=== PATIENT | male | born 1935 | race African-American/Black ===

== ENCOUNTER 2017-03-18 12:18 | Inpatient (IN) | payer MEDICARE, MEDICAID ==
[2017-03-18] VITALS (12 sets, daily range): BP systolic 98–137; BP diastolic 46–86
[~2017-03-18] VITALS: Ht 172.7 cm; Wt 92.7 kg
[2017-03-18] MEDS ORDERED: ALBUTEROL (0.5%) 2.5MG/0.5ML NEB HHN ONE (12:37)
[2017-03-18] MEDS ORDERED: IPRATROPIUM BROMIDE (0.02%) 0.5MG/2.5ML NEB ONE (12:37)
[2017-03-18 12:41] LABS: BG BASE EXCESS -0.4 mmol/L (-2.0-2.0); BG BILEVEL POS AIRWAY PRESSURE 20/5; BG CARBOXYHEMOGLOBIN 0.3 % (0.5-1.5); BG DEOXYHEMOGLOBIN 0.6 % (0.0-5.0); BG FRACTION INSPIRED OXYGEN 100; BG HCO3 ACT 23.8 mmol/L (22.0-26.0); BG METHEMOGLOBIN 0.4 % (0.0-1.5); BG OXYGEN SATURATION 99.4 % (92.0-98.5); BG OXYHEMOGLOBIN 98.7 % (94.0-97.0); BG PCO2 36.7 mmHg (35.0-45.0); BG PH 7.429 (7.350-7.450); BG PO2 330.4 mmHg (75.0-100.0); BG SAMPLE SITE LEFT RADIAL; BG TOTAL HEMOGLOBIN 9.2 g/dL (12.0-18.0); BG VENT MODE MASK - BIPAP
[2017-03-18 13:13] LABS: INR 1.4; PROTHROMBIN TIME 14.5 sec
[2017-03-18 13:15] LABS: BASOPHILS % 0.2 % (0.0-2.0); EOSINOPHILS % 0.6 % (0.0-5.0); HEMATOCRIT. 28.2 % (42.0-52.0); LYMPHOCYTES % 28.9 % (20.0-50.0); MEAN CORPUSCULAR HEMOGLOBIN 29.8 pg (28.0-32.0); MEAN CORPUSCULAR VOLUME 93.9 fL (80.0-94.0); MEAN PLATELET VOLUME 10.1 fl (7.4-10.4); MONOCYTES % 7.6 % (2.0-8.0); NEUTROPHILS % 62.7 % (40.0-76.0); PLATELET 92 x1000/uL (130-400); RED BLOOD CELL COUNT 3.01 mill/uL (4.7-6.1); RED CELL DISTRIBUTION WIDTH 14.9 % (11.6-14.6)
[2017-03-18 13:22] LABS: CARBON DIOXIDE 30 mEq/L (21-32); CHLORIDE 107 mEq/L (98-107)
[2017-03-18] MEDS ORDERED: PIPERACILLIN/TAZOBACTAM 3.375GM/50ML PREMIX IV ONE (13:30)
[2017-03-18] MEDS ORDERED: VANCOMYCIN 1 G PREMIX 200 ML IV SCH (13:30)
[2017-03-18] MEDS ORDERED: ETOMIDATE 2MG/ML 10ML VIAL IV ONE ×2 (13:32→14:00)
[2017-03-18] MEDS ORDERED: SUCCINYLCHOLINE CHLORIDE 200MG/10ML VIAL IV ONE ×2 (13:32→14:00)
[2017-03-18] MEDS ORDERED: PROPOFOL 10MG/ML 100ML 100 ML IV ONE ×2 (13:44→14:00)
[2017-03-18] MEDS ORDERED: PIPERACILLIN/TAZ 3.375G PREMIX 50 ML IV NR (13:45)
[2017-03-18] MEDS ORDERED: SODIUM CHLORIDE 0.9% 1000ML BAG (SEPSIS BOLUS) IV ONE ×2 (14:00→17:15)
[2017-03-18] MEDS ORDERED: ACETAMINOPHEN 650MG SUPP PR ONE (14:15)
[2017-03-18] MEDS: PANTOPRAZOLE SODIUM 40 MG/VIAL IV SCH (14:46)
[2017-03-18 15:02] LABS: CLARITY URINE CLOUDY (CLEAR); COLOR URINE DARK YELLOW (YELLOW); GLUCOSE URINE NEGATIVE (NEGATIVE); KETONES URINE NEGATIVE (NEGATIVE); LEUKOCYTE ESTERASE URINE NEGATIVE (NEGATIVE); NITRITE URINE NEGATIVE (NEGATIVE); OCCULT BLOOD URINE 3+ (NEGATIVE); PROTEIN URINE TRACE (NEGATIVE); SPECIFIC GRAVITY URINE 1.022 (1.005-1.030); UROBILINOGEN URINE 0.2 E.U./dL (0.2-1.0)
[2017-03-18 15:34] LABS: BG BASE EXCESS -0.1 mmol/L (-2.0-2.0); BG CARBOXYHEMOGLOBIN 0.2 % (0.5-1.5); BG DEOXYHEMOGLOBIN 0.5 % (0.0-5.0); BG FRACTION INSPIRED OXYGEN 100; BG METHEMOGLOBIN 0.6 % (0.0-1.5); BG OXYGEN SATURATION 99.5 % (92.0-98.5); BG OXYHEMOGLOBIN 98.7 % (94.0-97.0); BG PCO2 31.8 mmHg (35.0-45.0); BG PH 7.478 (7.350-7.450); BG PO2 475.2 mmHg (75.0-100.0); BG SAMPLE SITE RIGHT RADIAL; BG TIDAL VOLUME(mL) 650 mL; BG TOTAL HEMOGLOBIN 9.4 g/dL (12.0-18.0); BG VENT MODE VENT - A/C; BG VENT RATE 14 set
[2017-03-18] MEDS ORDERED: PROPOFOL 10MG/ML 100ML 100 ML IV PRN (16:45)
[2017-03-18] MEDS ORDERED: ONDANSETRON HCL 4MG/2ML VIAL IV PRN (17:15)
[2017-03-18] MEDS ORDERED: ACETAMINOPHEN 325MG TABLET PO PRN (17:15)
[2017-03-18] MEDS ORDERED: DOCUSATE SODIUM 100MG CAPSULE PO PRN (17:15)
[2017-03-18] MEDS ORDERED: MAGNESIUM/ALUMINUM HYDROXIDE/SIMETHICONE 30ML UDC PO PRN (17:15)
[2017-03-18] MEDS ORDERED: IPRATROPIUM/ALBUTEROL 0.5-3(2.5)MG/3ML NEB HHN SCH (17:15)
[2017-03-18] MEDS ORDERED: DIPHENHYDRAMINE 50MG/ML VIAL IV PRN (17:15)
[2017-03-18] MEDS ORDERED: NA PHOS,M-B/NA PHOS,DI-BA ENEMA 118ML PR PRN (17:15)
[2017-03-18] MEDS ORDERED: LEVOFLOXACIN 750MG PREMIX 150 ML IV NR (18:00)
[2017-03-18] MEDS ORDERED: SODIUM CHLORIDE 0.9% 1,500 ML IV SCH (18:00)
[2017-03-18] MEDS ORDERED: ENOXAPARIN 30MG/0.3ML SYR SUBCUT SCH (18:00)
[2017-03-18] MEDS ORDERED: SODIUM CHLORIDE 0.9% 1,000 ML IV SCH (18:00)
[2017-03-18] MEDS: DEXT 5%/0.45% NACL 1000ML 1,000 ML IV SCH (18:02)
[2017-03-18] MEDS ORDERED: NOREPINEPHRINE 4 MG in DEXT 5% WATER 246 ML IV PRN (19:00)
[2017-03-18 19:01] LABS: FOLIC ACID (FOLATE) SERUM 17.4 ng/mL (>5.38)
[2017-03-18] MEDS: ASCORBIC ACID 500 MG TABLET PO SCH (20:25)
[2017-03-18] MEDS: CEFTRIAXONE 1 G PREMIX 50 ML IV SCH (20:25)
[2017-03-18] MEDS: IPRATROPIUM/ALBUTEROL 0.5-3(2.5)MG/3ML NEB HHN SCH (21:16)
[2017-03-18] MEDS: METRONIDAZOLE 500 MG PREMIX 100 ML IV SCH (21:35)
[2017-03-18] MEDS: ALBUMIN HUMAN 25GM/100ML (25%) IV SCH (21:35)
[2017-03-19] VITALS (32 sets, daily range): BP systolic 118–153; BP diastolic 52–76
[2017-03-19] MEDS: IPRATROPIUM/ALBUTEROL 0.5-3(2.5)MG/3ML NEB HHN SCH ×7 (00:52→23:40)
[2017-03-19] MEDS: METRONIDAZOLE 500 MG PREMIX 100 ML IV SCH ×3 (05:21→22:06)
[2017-03-19] MEDS: ALBUMIN HUMAN 25GM/100ML (25%) IV SCH ×2 (05:21→14:26)
[2017-03-19 07:24] LABS: BG BASE EXCESS 2.4 mmol/L (-2.0-2.0); BG CARBOXYHEMOGLOBIN 0.3 % (0.5-1.5); BG DEOXYHEMOGLOBIN 1.1 % (0.0-5.0); BG HCO3 ACT 26.3 mmol/L (22.0-26.0); BG METHEMOGLOBIN 0.5 % (0.0-1.5); BG OXYGEN SATURATION 98.9 % (92.0-98.5); BG OXYHEMOGLOBIN 98.1 % (94.0-97.0); BG PCO2 37.5 mmHg (35.0-45.0); BG PH 7.464 (7.350-7.450); BG PO2 177.7 mmHg (75.0-100.0); BG SAMPLE SITE RIGHT RADIAL; BG TIDAL VOLUME(mL) 550 mL; BG TOTAL HEMOGLOBIN 6.8 g/dL (12.0-18.0); BG VENT MODE VENT - A/C; BG VENT RATE 14 set
[2017-03-19] MEDS ORDERED: PANTOPRAZOLE SODIUM 40 MG/VIAL IV SCH (09:00)
[2017-03-19] MEDS: PANTOPRAZOLE SODIUM 40 MG/VIAL IV SCH (09:28)
[2017-03-19] MEDS: DEXT 5%/0.45% NACL 1000ML 1,000 ML IV SCH ×2 (09:44→14:00)
[2017-03-19 10:01] LABS: BASOPHILS % 0.1 % (0.0-2.0); EOSINOPHILS % 4.7 % (0.0-5.0); LYMPHOCYTES % 10.7 % (20.0-50.0); MEAN CORPUSCULAR HEMOGLOBIN 29.7 pg (28.0-32.0); MEAN CORPUSCULAR VOLUME 92.6 fL (80.0-94.0); MEAN PLATELET VOLUME 10.2 fl (7.4-10.4); MONOCYTES % 3.3 % (2.0-8.0); NEUTROPHILS % 81.2 % (40.0-76.0); PLATELET 79 x1000/uL (130-400); RED BLOOD CELL COUNT 2.14 mill/uL (4.7-6.1); RED CELL DISTRIBUTION WIDTH 14.8 % (11.6-14.6)
[2017-03-19] MEDS: ASCORBIC ACID 500 MG TABLET PO SCH ×2 (10:01→10:06)
[2017-03-19 10:16] LABS: HEMATOCRIT. 19.8 % (42.0-52.0); HEMOGLOBIN. 6.3 g/dL (14.0-18.0)
[2017-03-19 10:22] LABS: CARBON DIOXIDE 27 mEq/L (21-32); CHLORIDE 111 mEq/L (98-107)
[2017-03-19] MEDS ORDERED: ACETAMINOPHEN 650MG SUPP PR PRN (12:15)
[2017-03-19] MEDS ORDERED: POTASSIUM CHLORIDE INJ 40 MEQ in DEXT 5% WATER 250 ML IV SCH (14:00)
[2017-03-19] MEDS: CEFTRIAXONE 1 G PREMIX 50 ML IV SCH (20:20)
[2017-03-20] VITALS (29 sets, daily range): BP systolic 136–160; BP diastolic 62–79
[2017-03-20] MEDS: DEXT 5%/0.45% NACL 1000ML 1,000 ML IV SCH ×3 (01:23→20:43)
[2017-03-20] MEDS: IPRATROPIUM/ALBUTEROL 0.5-3(2.5)MG/3ML NEB HHN SCH ×6 (03:04→23:44)
[2017-03-20 05:28] LABS: HEMATOCRIT. 28.3 % (42.0-52.0); HEMOGLOBIN. 9.3 g/dL (14.0-18.0); MEAN CORPUSCULAR HEMOGLOBIN 30.5 pg (28.0-32.0); MEAN CORPUSCULAR VOLUME 92.4 fL (80.0-94.0); MEAN PLATELET VOLUME 11.1 fl (7.4-10.4); PLATELET 98 x1000/uL (130-400); RED BLOOD CELL COUNT 3.06 mill/uL (4.7-6.1)
[2017-03-20 06:11] LABS: CARBON DIOXIDE 27 mEq/L (21-32); CHLORIDE 112 mEq/L (98-107)
[2017-03-20] MEDS: METRONIDAZOLE 500 MG PREMIX 100 ML IV SCH ×3 (06:21→22:01)
[2017-03-20] MEDS: PROPOFOL 10MG/ML 100ML 100 ML IV PRN ×2 (08:21→22:05)
[2017-03-20] MEDS: PANTOPRAZOLE SODIUM 40 MG/VIAL IV SCH (08:22)
[2017-03-20 08:56] LABS: BG CARBOXYHEMOGLOBIN 0.2 % (0.5-1.5); BG DEOXYHEMOGLOBIN 3.6 % (0.0-5.0); BG FRACTION INSPIRED OXYGEN 30; BG HCO3 ACT 23.2 mmol/L (22.0-26.0); BG METHEMOGLOBIN 1.1 % (0.0-1.5); BG OXYGEN SATURATION 96.4 % (92.0-98.5); BG OXYHEMOGLOBIN 95.1 % (94.0-97.0); BG PCO2 32.5 mmHg (35.0-45.0); BG PH 7.471 (7.350-7.450); BG PO2 95.9 mmHg (75.0-100.0); BG SAMPLE SITE RIGHT RADIAL; BG TIDAL VOLUME(mL) 550 mL; BG TOTAL HEMOGLOBIN 10.4 g/dL (12.0-18.0); BG VENT MODE VENT - A/C; BG VENT RATE 14 set
[2017-03-20] MEDS: ASCORBIC ACID 500 MG TABLET PO SCH ×2 (10:01→20:43)
[2017-03-20 11:00] LABS: PLATELET ESTIMATE DECREASED
[2017-03-20] MEDS: CEFEPIME 1,000 MG in DEXTROSE 5% WATER 50 ML IV SCH ×2 (13:21→20:43)
[2017-03-20] MEDS: FLUCONAZOLE 200 MG/100ML BAG 100 ML IV SCH (14:28)
[2017-03-20] MEDS ORDERED: LEVOFLOXACIN 750MG PREMIX 150 ML IV SCH (18:00)
[2017-03-21] VITALS (33 sets, daily range): BP systolic 121–174; BP diastolic 55–95
[2017-03-21] MEDS: IPRATROPIUM/ALBUTEROL 0.5-3(2.5)MG/3ML NEB HHN SCH ×5 (04:30→20:08)
[2017-03-21] MEDS: METRONIDAZOLE 500 MG PREMIX 100 ML IV SCH ×3 (06:21→22:49)
[2017-03-21] MEDS: PROPOFOL 10MG/ML 100ML 100 ML IV PRN (06:24)
[2017-03-21] MEDS: PANTOPRAZOLE SODIUM 40 MG/VIAL IV SCH (08:52)
[2017-03-21] MEDS: ASCORBIC ACID 500 MG TABLET PO SCH ×2 (08:52→20:17)
[2017-03-21] MEDS: CEFEPIME 1,000 MG in DEXTROSE 5% WATER 50 ML IV SCH ×2 (08:52→20:18)
[2017-03-21] MEDS: DEXT 5%/0.45% NACL 1000ML 1,000 ML IV SCH ×2 (09:13→20:18)
[2017-03-21] MEDS: FLUCONAZOLE 200 MG/100ML BAG 100 ML IV SCH (10:01)
[2017-03-21 12:30] LABS: BG CARBOXYHEMOGLOBIN 0.3 % (0.5-1.5); BG DEOXYHEMOGLOBIN 3.1 % (0.0-5.0); BG FRACTION INSPIRED OXYGEN 30; BG HCO3 ACT 22.9 mmol/L (22.0-26.0); BG METHEMOGLOBIN 0.4 % (0.0-1.5); BG OXYGEN SATURATION 96.9 % (92.0-98.5); BG OXYHEMOGLOBIN 96.2 % (94.0-97.0); BG PCO2 31.5 mmHg (35.0-45.0); BG PO2 91.6 mmHg (75.0-100.0); BG PRESSURE SUPPORT 10; BG SAMPLE SITE RIGHT RADIAL; BG TIDAL VOLUME(mL) 550 mL; BG VENT MODE VENT - SIMV; BG VENT RATE 14 set
[2017-03-21] MEDS: MIDAZOLAM HCL 50 MG in DEXTROSE 5% WATER 40 ML IV PRN ×2 (14:04→18:47)
[2017-03-21] MEDS: FENTANYL CITRATE/PF 500 MCG in SODIUM CHLORIDE 0.9% 40 ML IV PRN ×2 (14:19→18:48)
[2017-03-21] MEDS ORDERED: QUETIAPINE FUMARATE 25MG TABLET PO SCH (21:00)
[2017-03-22] VITALS (55 sets, daily range): BP systolic 100–172; BP diastolic 47–80
[2017-03-22] MEDS: IPRATROPIUM/ALBUTEROL 0.5-3(2.5)MG/3ML NEB HHN SCH ×6 (00:19→20:30)
[2017-03-22] MEDS ORDERED: ALBU18HF2 IH (01:58)
[2017-03-22] MEDS ORDERED: DILT180C3 PO (01:58)
[2017-03-22] MEDS ORDERED: HYDR25TA PO (01:58)
[2017-03-22] MEDS ORDERED: AMIO200T39 PO (01:58)
[2017-03-22] MEDS ORDERED: LISI30TA36 PO (01:58)
[2017-03-22] MEDS ORDERED: ACET250T3 PO (01:58)
[2017-03-22] MEDS ORDERED: ALBU2.5V13 IH (01:58)
[2017-03-22] MEDS ORDERED: BECL8.7H BOTHNSTRLS (01:58)
[2017-03-22] MEDS ORDERED: AMLO1CAP5 PO (01:58)
[2017-03-22] MEDS ORDERED: DIGO125T82 PO (01:58)
[2017-03-22] MEDS: DEXT 5%/0.45% NACL 1000ML 1,000 ML IV SCH ×2 (04:20→18:29)
[2017-03-22] MEDS: METRONIDAZOLE 500 MG PREMIX 100 ML IV SCH ×3 (06:11→22:17)
[2017-03-22] MEDS: MIDAZOLAM HCL 50 MG in DEXTROSE 5% WATER 40 ML IV PRN (06:12)
[2017-03-22] MEDS: FENTANYL CITRATE/PF 500 MCG in SODIUM CHLORIDE 0.9% 40 ML IV PRN (06:49)
[2017-03-22 07:44] LABS: BG BASE EXCESS -1.4 mmol/L (-2.0-2.0); BG HCO3 ACT 22.1 mmol/L (22.0-26.0); BG PCO2 32.5 mmHg (35.0-45.0); BG PH 7.451 (7.350-7.450); BG PO2 71.3 mmHg (75.0-100.0); BG SAMPLE SITE RIGHT RADIAL; BG TIDAL VOLUME(mL) 550 mL; BG TOTAL HEMOGLOBIN 9.4 g/dL (12.0-18.0); BG VENT MODE VENT - A/C; BG VENT RATE 14 set
[2017-03-22] MEDS: PANTOPRAZOLE SODIUM 40 MG/VIAL IV SCH (09:58)
[2017-03-22] MEDS: ASCORBIC ACID 500 MG TABLET PO SCH ×2 (09:59→20:21)
[2017-03-22] MEDS: CEFEPIME 1,000 MG in DEXTROSE 5% WATER 50 ML IV SCH (09:59)
[2017-03-22] MEDS: FLUCONAZOLE 200 MG/100ML BAG 100 ML IV SCH (10:54)
[2017-03-22 13:20] LABS: HEMATOCRIT. 28.5 % (42.0-52.0); HEMOGLOBIN. 9.5 g/dL (14.0-18.0); MEAN CORPUSCULAR HEMOGLOBIN 29.6 pg (28.0-32.0); MEAN CORPUSCULAR VOLUME 88.8 fL (80.0-94.0); MEAN PLATELET VOLUME 9.5 fl (7.4-10.4); PLATELET 167 x1000/uL (130-400); RED BLOOD CELL COUNT 3.21 mill/uL (4.7-6.1); RED CELL DISTRIBUTION WIDTH 15.6 % (11.6-14.6)
[2017-03-22 13:52] LABS: PLATELET ESTIMATE NORMAL
[2017-03-22] MEDS ORDERED: POTASSIUM CHLORIDE INJ 60 MEQ in DEXT 5% WATER 250 ML IV ONE (17:00)
[2017-03-22] MEDS: KCL 20MEQ/100ML PREMIX 100 ML IV SCH ×3 (18:20→22:16)
[2017-03-23] VITALS (56 sets, daily range): BP systolic 114–174; BP diastolic 54–98
[2017-03-23] MEDS: IPRATROPIUM/ALBUTEROL 0.5-3(2.5)MG/3ML NEB HHN SCH ×7 (00:25→23:58)
[2017-03-23] MEDS: CLONIDINE 0.1MG TABLET PO PRN (03:43)
[2017-03-23 05:02] LABS: HEMOGLOBIN. 9.4 g/dL (14.0-18.0); MEAN CORPUSCULAR HEMOGLOBIN 29.2 pg (28.0-32.0); RED BLOOD CELL COUNT 3.21 mill/uL (4.7-6.1)
[2017-03-23 05:27] LABS: CARBON DIOXIDE 26 mEq/L (21-32); CHLORIDE 111 mEq/L (98-107)
[2017-03-23 06:05] LABS: HEMATOCRIT. 28.7 % (42.0-52.0); MEAN CORPUSCULAR VOLUME 89.6 fL (80.0-94.0); MEAN PLATELET VOLUME 9.6 fl (7.4-10.4); PLATELET 183 x1000/uL (130-400); RED CELL DISTRIBUTION WIDTH 15.7 % (11.6-14.6)
[2017-03-23] MEDS: DEXT 5%/0.45% NACL 1000ML 1,000 ML IV SCH ×3 (06:30→20:58)
[2017-03-23] MEDS: METRONIDAZOLE 500 MG PREMIX 100 ML IV SCH ×3 (06:31→22:00)
[2017-03-23 07:45] LABS: BG BASE EXCESS -2.8 mmol/L (-2.0-2.0); BG CARBOXYHEMOGLOBIN 0.3 % (0.5-1.5); BG DEOXYHEMOGLOBIN 3.4 % (0.0-5.0); BG FRACTION INSPIRED OXYGEN 30; BG HCO3 ACT 20.7 mmol/L (22.0-26.0); BG METHEMOGLOBIN 0.5 % (0.0-1.5); BG OXYGEN SATURATION 96.6 % (92.0-98.5); BG OXYHEMOGLOBIN 95.8 % (94.0-97.0); BG PCO2 31.6 mmHg (35.0-45.0); BG PH 7.435 (7.350-7.450); BG PO2 89.6 mmHg (75.0-100.0); BG SAMPLE SITE RIGHT RADIAL; BG TIDAL VOLUME(mL) 550 mL; BG TOTAL HEMOGLOBIN 10.3 g/dL (12.0-18.0); BG VENT MODE VENT - A/C; BG VENT RATE 14 set
[2017-03-23] MEDS: CEFEPIME 1,000 MG in DEXTROSE 5% WATER 50 ML IV SCH ×2 (09:00→14:18)
[2017-03-23] MEDS: ASCORBIC ACID 500 MG TABLET PO SCH ×2 (09:00→20:57)
[2017-03-23] MEDS: PANTOPRAZOLE SODIUM 40 MG/VIAL IV SCH (09:00)
[2017-03-23] MEDS: FLUCONAZOLE 200 MG/100ML BAG 100 ML IV SCH (09:00)
[2017-03-23 10:27] LABS: PLATELET ESTIMATE NORMAL
[2017-03-23] MEDS: ASPIRIN 325MG TABLET PO SCH (14:17)
[2017-03-23 15:48] LABS: T4 FREE 1.38 ng/dL (0.76-1.46)
[2017-03-23 16:21] LABS: VITAMIN B12 SERUM > 2000 pg/mL (211-911)
[2017-03-23] MEDS: FENTANYL CITRATE/PF 500 MCG in SODIUM CHLORIDE 0.9% 40 ML IV PRN (22:00)
[2017-03-23] MEDS: MIDAZOLAM HCL 50 MG in DEXTROSE 5% WATER 40 ML IV PRN (22:39)
[2017-03-24] VITALS (74 sets, daily range): BP systolic 105–172; BP diastolic 48–102
[2017-03-24] MEDS: IPRATROPIUM/ALBUTEROL 0.5-3(2.5)MG/3ML NEB HHN SCH ×3 (03:59→11:42)
[2017-03-24] MEDS: CLONIDINE 0.1MG TABLET PO PRN (05:07)
[2017-03-24] MEDS: FENTANYL CITRATE/PF 500 MCG in SODIUM CHLORIDE 0.9% 40 ML IV PRN ×3 (05:57→22:22)
[2017-03-24] MEDS: MIDAZOLAM HCL 50 MG in DEXTROSE 5% WATER 40 ML IV PRN ×2 (05:58→13:39)
[2017-03-24] MEDS: METRONIDAZOLE 500 MG PREMIX 100 ML IV SCH (06:04)
[2017-03-24 07:27] LABS: BG BASE EXCESS -0.4 mmol/L (-2.0-2.0); BG CARBOXYHEMOGLOBIN 0.3 % (0.5-1.5); BG DEOXYHEMOGLOBIN 8.9 % (0.0-5.0); BG FRACTION INSPIRED OXYGEN 30; BG METHEMOGLOBIN 1.7 % (0.0-1.5); BG OXYGEN SATURATION 90.9 % (92.0-98.5); BG OXYHEMOGLOBIN 89.1 % (94.0-97.0); BG PCO2 44.6 mmHg (35.0-45.0); BG PH 7.367 (7.350-7.450); BG PO2 65.9 mmHg (75.0-100.0); BG SAMPLE SITE RIGHT RADIAL; BG TIDAL VOLUME(mL) 550 mL; BG VENT MODE VENT - A/C; BG VENT RATE 14 set
[2017-03-24] MEDS: DEXT 5%/0.45% NACL 1000ML 1,000 ML IV SCH ×2 (07:56→19:51)
[2017-03-24] MEDS: ASPIRIN 325MG TABLET PO SCH (08:39)
[2017-03-24] MEDS: PANTOPRAZOLE SODIUM 40 MG/VIAL IV SCH (08:39)
[2017-03-24] MEDS: FLUCONAZOLE 200 MG/100ML BAG 100 ML IV SCH (08:39)
[2017-03-24] MEDS: ASCORBIC ACID 500 MG TABLET PO SCH (08:39)
[2017-03-24 10:54] LABS: HEMATOCRIT. 25.5 % (42.0-52.0); HEMOGLOBIN. 8.4 g/dL (14.0-18.0); MEAN CORPUSCULAR HEMOGLOBIN 29.2 pg (28.0-32.0); MEAN CORPUSCULAR VOLUME 88.4 fL (80.0-94.0); MEAN PLATELET VOLUME 9.2 fl (7.4-10.4); PLATELET 214 x1000/uL (130-400); RED BLOOD CELL COUNT 2.89 mill/uL (4.7-6.1); RED CELL DISTRIBUTION WIDTH 15.9 % (11.6-14.6)
[2017-03-24 11:06] LABS: CARBON DIOXIDE 24 mEq/L (21-32); CHLORIDE 106 mEq/L (98-107)
[2017-03-24 11:31] LABS: PLATELET ESTIMATE NORMAL
[2017-03-24] MEDS ORDERED: LORAZEPAM 2MG/ML CPJ IV PRN (14:00)
[2017-03-24] MEDS: IPRATROPIUM/ALBUTEROL 0.5-3(2.5)MG/3ML NEB HHN PRN ×2 (16:07→20:32)
[2017-03-25] VITALS (80 sets, daily range): BP systolic 105–159; BP diastolic 48–73
[2017-03-25] MEDS: DEXT 5%/0.45% NACL 1000ML 1,000 ML IV SCH ×3 (06:00→20:00)
[2017-03-25] MEDS: FENTANYL CITRATE/PF 500 MCG in SODIUM CHLORIDE 0.9% 40 ML IV PRN ×3 (06:41→22:01)
[2017-03-25] MEDS: PANTOPRAZOLE SODIUM 40 MG/VIAL IV SCH (08:00)
[2017-03-25] MEDS: IPRATROPIUM/ALBUTEROL 0.5-3(2.5)MG/3ML NEB HHN PRN ×2 (08:02→12:55)
[2017-03-25] MEDS ORDERED: VANCOMYCIN HCL 1 GM/VIAL PO SCH (12:00)
[2017-03-26] VITALS (39 sets, daily range): BP systolic 124–168; BP diastolic 54–93
[2017-03-26] MEDS: IPRATROPIUM/ALBUTEROL 0.5-3(2.5)MG/3ML NEB HHN PRN ×2 (07:54→15:32)
[2017-03-26] MEDS: MORPHINE SULFATE 100 MG in DEXT 5% WATER 90 ML IV PRN (11:03)
[2017-03-26] MEDS ORDERED: BISACODYL 5MG TABLET PO PRN (11:30)
[2017-03-26] MEDS: DEXT 5%/0.45% NACL 1000ML 1,000 ML IV SCH ×2 (12:56→23:19)
[2017-03-26] MEDS ORDERED: BISACODYL 10MG SUPP PR PRN (15:30)
[2017-03-27] VITALS (14 sets, daily range): BP systolic 117–159; BP diastolic 44–89
[2017-03-27] MEDS: IPRATROPIUM/ALBUTEROL 0.5-3(2.5)MG/3ML NEB HHN PRN ×3 (08:21→16:09)
[2017-03-27] MEDS: DEXT 5%/0.45% NACL 1000ML 1,000 ML IV SCH ×2 (13:45→22:49)
[2017-03-28] VITALS (12 sets, daily range): BP systolic 131–170; BP diastolic 48–122
[2017-03-28] MEDS: MORPHINE SULFATE 100 MG in DEXT 5% WATER 90 ML IV PRN (07:46)
[2017-03-28] MEDS: IPRATROPIUM/ALBUTEROL 0.5-3(2.5)MG/3ML NEB HHN PRN ×3 (08:27→15:53)
[2017-03-28] MEDS: DEXT 5%/0.45% NACL 1000ML 1,000 ML IV SCH ×2 (10:21→18:48)
[2017-03-29] VITALS (12 sets, daily range): BP systolic 148–186; BP diastolic 65–85
[2017-03-29] MEDS: DEXT 5%/0.45% NACL 1000ML 1,000 ML IV SCH ×2 (04:46→14:56)
[2017-03-29] MEDS: CLONIDINE 0.1MG TABLET PO PRN (16:09)
[2017-03-30] VITALS (9 sets, daily range): BP systolic 132–196; BP diastolic 51–95
[2017-03-30] MEDS: DEXT 5%/0.45% NACL 1000ML 1,000 ML IV SCH ×2 (00:16→11:18)
[2017-03-30] MEDS: CLONIDINE 0.1MG TABLET PO PRN (04:42)
[2017-03-30] MEDS: IPRATROPIUM/ALBUTEROL 0.5-3(2.5)MG/3ML NEB HHN PRN (07:42)
[2017-03-30] MEDS ORDERED: AMLODIPINE 10MG TABLET PO SCH (09:00)
[2017-03-30] MEDS: MORPHINE SULFATE 100 MG in DEXT 5% WATER 90 ML IV PRN (09:43)
[2017-03-30] MEDS ORDERED: LORAZEPAM 2MG/ML CPJ IV PRN (12:00)
[2017-03-30] MEDS ORDERED: MORPHINE SULFATE 250 MG in DEXT 5% WATER 240 ML IV PRN (14:00)
== END 2017-03-30 15:28 | disposition expired | DRG 870 ==
LOC: ER 12:18 → MICUSO 14:04 → EDBEDREQ 14:08 → EDBEDREQSVC 14:08 → EDBEDREQ 14:29 → 5EST 03-26 16:54
PROVIDERS: ADMIT Internal Medicine; ATTEND Internal Medicine
PROC: 5A1955Z Respiratory Ventilation, Greater than 96 Consecutive Hours (ICD-10-PCS; 2017-03-18)
PROC: 0BH18EZ Insertion of Endotracheal Airway into Trachea, Via Natural or Artificial Opening Endoscopic (ICD-10-PCS; 2017-03-18)
PROC: 02HV33Z Insertion of Infusion Device into Superior Vena Cava, Percutaneous Approach (ICD-10-PCS; 2017-03-18)
PROC: B548ZZA Ultrasonography of Superior Vena Cava, Guidance (ICD-10-PCS; 2017-03-18)
PROC: 5A09357 Assistance with Respiratory Ventilation, Less than 24 Consecutive Hours, Continuous Positive Airway Pressure (ICD-10-PCS; 2017-03-18)
PROC: 30233N1 Transfusion of Nonautologous Red Blood Cells into Peripheral Vein, Percutaneous Approach (ICD-10-PCS; principal; 2017-03-19)
DX: A41.9 Sepsis, unspecified organism (principal); E43 Unspecified severe protein-calorie malnutrition; J96.00 Acute respiratory failure, unspecified whether with hypoxia or hypercapnia; R65.21 Severe sepsis with septic shock; N17.0 Acute kidney failure with tubular necrosis; G93.40 Encephalopathy, unspecified; J69.0 Pneumonitis due to inhalation of food and vomit; I63.9 Cerebral infarction, unspecified; E87.0 Hyperosmolality and hypernatremia; I50.32 Chronic diastolic (congestive) heart failure; N39.0 Urinary tract infection, site not specified; Z66 Do not resuscitate; I46.9 Cardiac arrest, cause unspecified; I11.0 Hypertensive heart disease with heart failure; D63.8 Anemia in other chronic diseases classified elsewhere; D72.819 Decreased white blood cell count, unspecified; Z51.5 Encounter for palliative care; Z99.81 Dependence on supplemental oxygen; Z86.73 Personal history of transient ischemic attack (TIA), and cerebral infarction without residual deficits; Z87.01 Personal history of pneumonia (recurrent); Z68.31 Body mass index [BMI] 31.0-31.9, adult; Z79.899 Other long term (current) drug therapy; Z79.82 Long term (current) use of aspirin
CPT/HCPCS: 31500; 36415; 36430; 36569; 36600; 70450; 70551; 71010; 74000; 76770; 76937; 80048; 80053; 80061; 81001; 82375; 82607; 82746; 82805; 83036; 83540; 83550; 83605; 84439; 84443; 84478; 84481; 85025; 85610; 86850; 86900; 86920; 87040; 87070; 87086; 87106; 93005; 93306; 93880; 93970; 94003; 94640; 96365; 96375; 99291; C1725; C9113; J0330; J0692; J0696; J1200; J1450; J1956; J2060; J2250; J2270; J2543; J2704; J3010; J3370; J3480; J3490; J7030; J7042; J7050; J7060; J7611; J7620; P9016; P9047; A4315